=== PATIENT | male | born 1995 | race Two or more races ===

== ENCOUNTER 2018-02-11 17:59 | Emergency (ER) | payer MEDICAID ==
[~2018-02-11] VITALS: Ht 172.7 cm; Wt 94.0 kg
[2018-02-11 18:24] LABS: BASOPHILS % (AUTO) 0.4 % (0-1); EOSINOPHILS # (AUTO) 0.1 X10'3 (0-0.9); EOSINOPHILS % (AUTO) 1.4 % (0-6); HEMOGLOBIN 16.5 g/dl (14.0-17.9); LYMPHOCYTES # (AUTO) 1.6 X10'3 (1.1-4.8); LYMPHOCYTES % (AUTO) 24.3 % (21-51); MEAN CORPUSCULAR HGB CONC 34.4 % (33.0-36.5); MEAN CORPUSCULAR VOLUME 90.1 FL (78-98); MEAN PLATELET VOLUME 7.9 FL (7.4-10.4); MONOCYTES # (AUTO) 0.6 X10'3 (0-0.9); MONOCYTES % (AUTO) 8.5 % (2-12); NEUTROPHILS # (AUTO) 4.4 X10'3 (1.8-7.7); NEUTROPHILS % (AUTO) 65.4 % (42-75); PLATELET COUNT 249 X10'3 (140-440); RED BLOOD COUNT 5.32 X10'6 (4.70-6.10); RED CELL DISTRIBUTION WIDTH 13.1 % (11.5-14.5); WHITE BLOOD COUNT 6.7 X10'3 (4.5-11.0)
[2018-02-11 18:33] LABS: PARTIAL THROMBOPLASTIN TIME 25 SECONDS (22-32); PROTHROMBIN TIME 10.2 SECONDS (9.0-12.0)
[2018-02-11 18:38] LABS: ALANINE AMINOTRANSFERASE 94 U/L (12-78); ALBUMIN 4.4 G/DL (3.4-5.0); ALBUMIN/GLOBULIN RATIO 1.2 (1.1-1.5); ALKALINE PHOSPHATASE 55 IU/L (46-116); ANION GAP 11 (8-16); ASPARTATE AMINO TRANSFERASE 49 U/L (10-37); BLOOD UREA NITROGEN 15 MG/DL (7-18); BUN/CREATININE RATIO 14.6 (5.4-32.0); CALCIUM 9.2 MG/DL (8.5-10.1); CHLORIDE 101 MMOL/L (99-107); CREATININE 1.03 MG/DL (0.60-1.10); GLUCOSE 110 MG/DL (70-104); POTASSIUM 3.7 MMOL/L (3.5-5.1); SODIUM 139 MMOL/L (135-145); TOTAL CARBON DIOXIDE 26.8 MMOL/L (24-32); TOTAL PROTEIN 8.2 G/DL (6.4-8.2); eGFR 89 ML/MIN
[2018-02-11 18:57] VITALS: BP 137/72
== END 2018-02-11 19:01 | disposition home or self-care (01) ==
LOC: ER 17:59
DX: R07.9 Chest pain, unspecified (principal); F12.90 Cannabis use, unspecified, uncomplicated; F15.90 Other stimulant use, unspecified, uncomplicated
CPT/HCPCS: 36415; 71045; 80053; 84484; 85025; 85610; 85730; 93005; 99285

== ENCOUNTER 2019-01-06 20:29 | Emergency (ER) | payer MEDICAID ==
[~2019-01-06] VITALS: Ht 172.7 cm; Wt 94.0 kg
[2019-01-06 21:31] VITALS: BP 133/87
== END 2019-01-06 21:37 | disposition home or self-care (01) ==
LOC: ER 20:29
DX: S60.012A Contusion of left thumb without damage to nail, initial encounter (principal); F12.90 Cannabis use, unspecified, uncomplicated; F15.90 Other stimulant use, unspecified, uncomplicated; X58.XXXA Exposure to other specified factors, initial encounter; Y93.89 Activity, other specified; Y92.89 Other specified places as the place of occurrence of the external cause; Y99.8 Other external cause status
CPT/HCPCS: 11740; 73140; 99283

== ENCOUNTER 2019-03-03 14:18 | Emergency (ER) | payer MEDICAID ==
[~2019-03-03] VITALS: Ht 172.7 cm; Wt 98.0 kg
[2019-03-03 14:27] VITALS: BP 125/72
[2019-03-03 15:51] LABS: BASOPHILS % (AUTO) 0.6 % (0-1); EOSINOPHILS # (AUTO) 0.1 X10'3 (0-0.9); EOSINOPHILS % (AUTO) 2.4 % (0-6); HEMATOCRIT 44.5 % (42.0-52.0); HEMOGLOBIN 15.5 g/dl (14.0-17.9); LYMPHOCYTES # (AUTO) 1.2 X10'3 (1.1-4.8); LYMPHOCYTES % (AUTO) 21.5 % (21-51); MEAN CORPUSCULAR HEMOGLOBIN 30.5 PG (27.0-31.0); MEAN CORPUSCULAR HGB CONC 34.7 g/dL (33.0-36.5); MEAN CORPUSCULAR VOLUME 87.7 FL (78-98); MEAN PLATELET VOLUME 8.2 FL (7.4-10.4); MONOCYTES # (AUTO) 0.4 X10'3 (0-0.9); MONOCYTES % (AUTO) 7.9 % (2-12); NEUTROPHILS # (AUTO) 3.7 X10'3 (1.8-7.7); NEUTROPHILS % (AUTO) 67.6 % (42-75); PLATELET COUNT 254 X10'3 (140-440); RED BLOOD COUNT 5.07 X10'6 (4.70-6.10); RED CELL DISTRIBUTION WIDTH 13.2 % (11.5-14.5); WHITE BLOOD COUNT 5.4 X10'3 (4.5-11.0)
[2019-03-03 15:58] LABS: CLARITY,URINE CLEAR (Clear); COLOR,URINE YELLOW (Yellow); GLUCOSE, URINE NEGATIVE (Neg); KETONES,URINE NEGATIVE (Neg); LEUKOCYTE ESTERASE ,URINE TRACE (Neg); NITRITES, URINE NEGATIVE (Neg); OCCULT BLOOD,URINE TRACE-LYSED (Neg); PH,URINE 7.5 (4.8-8.0); PROTEIN,URINE NEGATIVE (Neg); UROBILINOGEN,URINE 0.2 E.U/dL (0.2-1.0)
[2019-03-03 15:59] LABS: UA COLLECTION TYPE CLN CATCH MIDSTREAM
[2019-03-03 16:04] LABS: ALANINE AMINOTRANSFERASE 117 U/L (12-78); ALBUMIN 4.1 G/DL (3.4-5.0); ALKALINE PHOSPHATASE 47 IU/L (46-116); ANION GAP 8 (8-16); CHLORIDE 106 MMOL/L (99-107); CREATININE 0.85 MG/DL (0.60-1.10); POTASSIUM 4.2 MMOL/L (3.5-5.1); SODIUM 141 MMOL/L (135-145); TOTAL CARBON DIOXIDE 27.1 MMOL/L (24-32); eGFR > 90 ML/MIN
[2019-03-03 16:05] LABS: SQUAMOUS EPITHELIAL CELL,UR FEW /LPF (FEW); WBC,URINE 0-4 /HPF (0-4)
[2019-03-03 16:07] LABS: BACTERIA,URINE FEW /HPF (Neg)
[2019-03-03 16:08] LABS: RBC,URINE 50-100 /HPF (0-2)
[2019-03-03 16:09] LABS: ALBUMIN/GLOBULIN RATIO 1.2 (1.1-1.5); BILIRUBIN,TOTAL 0.9 MG/DL (0.1-1.0); BLOOD UREA NITROGEN 10 MG/DL (7-18); BUN/CREATININE RATIO 11.8 (5.4-32.0); CALCIUM 8.3 MG/DL (8.5-10.1); GLUCOSE 91 MG/DL (70-104); TOTAL PROTEIN 7.5 G/DL (6.4-8.2)
[2019-03-03 16:10] LABS: ASPARTATE AMINO TRANSFERASE 58 U/L (10-37)
== END 2019-03-03 17:16 | disposition home or self-care (01) ==
LOC: ER 14:19
DX: R31.9 Hematuria, unspecified (principal); R74.0 Nonspecific elevation of levels of transaminase and lactic acid dehydrogenase [LDH]; R10.9 Unspecified abdominal pain; F12.90 Cannabis use, unspecified, uncomplicated; F15.90 Other stimulant use, unspecified, uncomplicated; F10.99 Alcohol use, unspecified with unspecified alcohol-induced disorder; Y90.9 Presence of alcohol in blood, level not specified
CPT/HCPCS: 36415; 76775; 80053; 81001; 85025; 87088; 99284

== ENCOUNTER 2019-03-31 10:33 | Emergency (ER) | payer MEDICAID | END 2019-03-31 11:30 | disposition left against medical advice (07) | LOC: ER 10:33 | DX: R10.9 Unspecified abdominal pain (principal); Z53.21 Procedure and treatment not carried out due to patient leaving prior to being seen by health care provider ==

== ENCOUNTER 2019-05-29 13:27 | Emergency (ER) | payer MEDICAID ==
[~2019-05-29] VITALS: Ht 172.7 cm; Wt 95.5 kg
[2019-05-29 15:59] VITALS: BP 125/87
--- NOTE | 2019-05-29 16:01 | NUR ---
PT AMB WITH STEADY GAIT TO HALLWAY BED, "I JUST NEED A NOTE TO GO BACK TO WORK...I AM OK", PT DENIES CHEST PAIN/DISCOMFORT, NO SOB, NO DIZZINESS, PT WORKS [employer], ON BREAK PT HAS WITNESSED SYNCOPAL EPISODE "LASTED A FEW SECONDS AND I WAS ABLE TO GET ON GROUND", PT IS [employer] 15, RESP EVEN AND UNLABORED, WAITING TO BE EVALUATED
== END 2019-05-29 16:33 | disposition home or self-care (01) ==
LOC: ER 13:27
DX: R55 Syncope and collapse (principal); R07.89 Other chest pain; R42 Dizziness and giddiness; R40.1 Stupor; F12.90 Cannabis use, unspecified, uncomplicated; F15.90 Other stimulant use, unspecified, uncomplicated
CPT/HCPCS: 93005; 99283

== ENCOUNTER 2019-09-26 03:40 | Emergency (ER) | payer MEDICAID ==
[~2019-09-26] VITALS: Ht 172.7 cm; Wt 95.5 kg
[2019-09-26 04:06] VITALS: BP 137/90
== END 2019-09-26 04:07 | disposition home or self-care (01) ==
LOC: ER 03:41
DX: R25.3 Fasciculation (principal); R42 Dizziness and giddiness; R06.02 Shortness of breath; F17.200 Nicotine dependence, unspecified, uncomplicated; F15.90 Other stimulant use, unspecified, uncomplicated; F12.90 Cannabis use, unspecified, uncomplicated; Z72.89 Other problems related to lifestyle
CPT/HCPCS: 93005; 99283

== ENCOUNTER 2020-03-05 03:36 | Emergency (ER) | payer MEDICAID ==
[~2020-03-05] VITALS: Ht 172.7 cm; Wt 100.0 kg
[2020-03-05 03:41] VITALS: BP 138/98
--- NOTE | 2020-03-05 03:50 | NUR ---
pt states he tested positive for covid 19. Feelings of SOB prn. However, he is visiting with me and not SOB and saturation on RA is 98-99 % and his VS are all WNLs. He even believes he is having mini panic attacks.
== END 2020-03-05 04:44 | disposition home or self-care (01) ==
LOC: ER 03:36
DX: U07.1 COVID-19 (principal); F41.9 Anxiety disorder, unspecified; F12.90 Cannabis use, unspecified, uncomplicated; F15.90 Other stimulant use, unspecified, uncomplicated
CPT/HCPCS: 99281

== ENCOUNTER 2020-06-20 17:35 | Emergency (ER) | payer MEDICAID ==
[~2020-06-20] VITALS: Ht 172.7 cm; Wt 95.5 kg
[2020-06-20 18:10] VITALS: BP 137/98
== END 2020-06-20 18:35 | disposition home or self-care (01) ==
LOC: ER 17:36
DX: S06.0X0A Concussion without loss of consciousness, initial encounter (principal); R51.9 Headache, unspecified; F12.90 Cannabis use, unspecified, uncomplicated; F15.90 Other stimulant use, unspecified, uncomplicated; Z72.89 Other problems related to lifestyle; X58.XXXA Exposure to other specified factors, initial encounter; Y93.89 Activity, other specified; Y92.89 Other specified places as the place of occurrence of the external cause; Y99.8 Other external cause status
CPT/HCPCS: 99282

== ENCOUNTER 2020-07-12 11:22 | Emergency (ER) | payer MEDICAID ==
[~2020-07-12] VITALS: Ht 172.7 cm; Wt 110.0 kg
[2020-07-12 11:34] VITALS: BP 144/80
== END 2020-07-12 13:53 | disposition home or self-care (01) ==
LOC: ER 11:23
DX: R51.9 Headache, unspecified (principal); R42 Dizziness and giddiness; F15.90 Other stimulant use, unspecified, uncomplicated; Z72.89 Other problems related to lifestyle; F12.90 Cannabis use, unspecified, uncomplicated
CPT/HCPCS: 70450; 99284

== ENCOUNTER 2020-09-08 17:40 | Emergency (ER) | payer MEDICAID ==
[~2020-09-08] VITALS: Ht 172.7 cm; Wt 100.0 kg
[2020-09-08 17:43] VITALS: BP 154/100
[2020-09-08 18:15] LABS: BASOPHILS % (AUTO) 0.5 % (0-1); EOSINOPHILS # (AUTO) 0.1 X10'3 (0-0.9); EOSINOPHILS % (AUTO) 2.2 % (0-6); HEMATOCRIT 48.5 % (42.0-52.0); HEMOGLOBIN 16.6 g/dl (14.0-17.9); LYMPHOCYTES # (AUTO) 1.6 X10'3 (1.1-4.8); LYMPHOCYTES % (AUTO) 23.6 % (21-51); MEAN CORPUSCULAR HGB CONC 34.1 g/dL (33.0-36.5); MEAN CORPUSCULAR VOLUME 87.9 FL (78-98); MEAN PLATELET VOLUME 8.5 FL (7.4-10.4); MONOCYTES # (AUTO) 0.6 X10'3 (0-0.9); MONOCYTES % (AUTO) 8.7 % (2-12); NEUTROPHILS # (AUTO) 4.3 X10'3 (1.8-7.7); PLATELET COUNT 291 X10'3 (140-440); RED BLOOD COUNT 5.52 X10'6 (4.70-6.10); RED CELL DISTRIBUTION WIDTH 13.1 % (11.5-14.5); WHITE BLOOD COUNT 6.6 X10'3 (4.5-11.0)
[2020-09-08 18:30] LABS: ALANINE AMINOTRANSFERASE 242 U/L (12-78); ALBUMIN 4.8 G/DL (3.4-5.0); ALBUMIN/GLOBULIN RATIO 1.2 (1.1-1.5); ALKALINE PHOSPHATASE 52 IU/L (46-116); ANION GAP 9 (8-16); ASPARTATE AMINO TRANSFERASE 100 U/L (10-37); BILIRUBIN,TOTAL 1.3 MG/DL (0.1-1.0); BLOOD UREA NITROGEN 16 MG/DL (7-18); BUN/CREATININE RATIO 16.7 (5.4-32.0); CALCIUM 9.3 MG/DL (8.5-10.1); CHLORIDE 103 MMOL/L (99-107); CREATININE 0.96 MG/DL (0.60-1.10); POTASSIUM 3.8 MMOL/L (3.5-5.1); SODIUM 139 MMOL/L (135-145); TOTAL CARBON DIOXIDE 27.1 MMOL/L (24-32); TOTAL PROTEIN 8.7 G/DL (6.4-8.2); eGFR > 90 ML/MIN
[2020-09-08 18:35] LABS: GLUCOSE 115 MG/DL (70-104)
[2020-09-08 18:47] LABS: COLOR,URINE YELLOW (Yellow); GLUCOSE, URINE NEGATIVE (Neg); KETONES,URINE NEGATIVE (Neg); LEUKOCYTE ESTERASE ,URINE TRACE (Neg); NITRITES, URINE NEGATIVE (Neg); OCCULT BLOOD,URINE SMALL (Neg); PH,URINE 6.5 (4.8-8.0); PROTEIN,URINE NEGATIVE (Neg); UROBILINOGEN,URINE 0.2 E.U/dL (0.2-1.0)
[2020-09-08 18:56] LABS: CLARITY,URINE SLIGHTLY CLOUDY (Clear); UA COLLECTION TYPE URINAL
[2020-09-08 18:58] LABS: BACTERIA,URINE FEW /HPF (Neg); RBC,URINE 0-2 /HPF (0-2); SQUAMOUS EPITHELIAL CELL,UR FEW /LPF (FEW)
== END 2020-09-08 19:28 | disposition home or self-care (01) ==
LOC: ER 17:40
DX: R74.01 Elevation of levels of liver transaminase levels (principal); R16.0 Hepatomegaly, not elsewhere classified; F12.90 Cannabis use, unspecified, uncomplicated; F15.90 Other stimulant use, unspecified, uncomplicated; Z72.89 Other problems related to lifestyle
CPT/HCPCS: 36415; 76700; 80053; 81001; 85025; 87088; 99284

== ENCOUNTER 2020-10-18 18:35 | Emergency (ER) | payer MEDICAID ==
[~2020-10-18] VITALS: Ht 172.7 cm; Wt 100.0 kg
[2020-10-18 19:38] LABS: BASOPHILS % (AUTO) 0.6 % (0-1); EOSINOPHILS # (AUTO) 0.4 X10'3 (0-0.9); EOSINOPHILS % (AUTO) 5.1 % (0-6); HEMATOCRIT 43.9 % (42.0-52.0); HEMOGLOBIN 15.4 g/dl (14.0-17.9); LYMPHOCYTES # (AUTO) 1.6 X10'3 (1.1-4.8); LYMPHOCYTES % (AUTO) 19.7 % (21-51); MEAN CORPUSCULAR VOLUME 88.5 FL (78-98); MEAN PLATELET VOLUME 8.2 FL (7.4-10.4); MONOCYTES # (AUTO) 0.7 X10'3 (0-0.9); MONOCYTES % (AUTO) 8.7 % (2-12); NEUTROPHILS # (AUTO) 5.3 X10'3 (1.8-7.7); NEUTROPHILS % (AUTO) 65.9 % (42-75); PLATELET COUNT 283 X10'3 (140-440); RED BLOOD COUNT 4.96 X10'6 (4.70-6.10); RED CELL DISTRIBUTION WIDTH 13.3 % (11.5-14.5); WHITE BLOOD COUNT 8.1 X10'3 (4.5-11.0)
[2020-10-18 19:51] LABS: ALANINE AMINOTRANSFERASE 259 U/L (12-78); ALBUMIN 4.3 G/DL (3.4-5.0); ALBUMIN/GLOBULIN RATIO 1.1 (1.1-1.5); ALKALINE PHOSPHATASE 60 IU/L (46-116); ANION GAP 11 (8-16); ASPARTATE AMINO TRANSFERASE 113 U/L (10-37); BILIRUBIN,TOTAL 0.9 MG/DL (0.1-1.0); BLOOD UREA NITROGEN 15 MG/DL (7-18); CHLORIDE 101 MMOL/L (99-107); POTASSIUM 4.2 MMOL/L (3.5-5.1); SODIUM 139 MMOL/L (135-145); TOTAL CARBON DIOXIDE 27.2 MMOL/L (24-32); TOTAL PROTEIN 8.1 G/DL (6.4-8.2); eGFR 90 ML/MIN
[2020-10-18 19:59] LABS: GLUCOSE 99 MG/DL (70-104)
[2020-10-18 22:49] VITALS: BP 142/84
== END 2020-10-18 22:56 | disposition home or self-care (01) ==
LOC: ER 18:35
DX: M94.0 Chondrocostal junction syndrome [Tietze] (principal); F12.90 Cannabis use, unspecified, uncomplicated; F15.90 Other stimulant use, unspecified, uncomplicated
CPT/HCPCS: 36415; 71045; 80053; 84484; 85025; 93005; 99285

== ENCOUNTER 2021-09-29 13:57 | Outpatient (CLI) | payer MEDICAID | END 2021-09-29 23:59 | disposition home or self-care (01) | LOC: RT 13:57 | PROVIDERS: ATTEND Family Medicine | DX: R06.02 Shortness of breath (principal); F12.90 Cannabis use, unspecified, uncomplicated; Z79.899 Other long term (current) drug therapy | CPT/HCPCS: 94010 ==

== ENCOUNTER 2022-11-16 21:29 | Emergency (ER) | payer MEDICAID ==
[~2022-11-16] VITALS: Ht 172.7 cm; Wt 109.1 kg
[2022-11-16 21:31] VITALS: BP 125/83
[2022-11-16] MEDS ORDERED: bacitracin 15gm ointment TP ONE (21:50)
== END 2022-11-16 22:05 ==
LOC: ER 21:29
DX: S30.810A Abrasion of lower back and pelvis, initial encounter (principal); Y93.89 Activity, other specified; X58.XXXA Exposure to other specified factors, initial encounter; Y92.89 Other specified places as the place of occurrence of the external cause; Y99.8 Other external cause status
CPT/HCPCS: 99283

== ENCOUNTER 2023-02-15 00:26 | Emergency (ER) | payer MEDICAID ==
--- NOTE | 2023-02-15 00:37 | NUR ---
[employer] states that the patient refused lab/put his jacket on and walked out. Not sure if he'll return.
== END 2023-02-15 01:29 | disposition left against medical advice (07) ==
LOC: ER 00:27
DX: R07.89 Other chest pain (principal); R20.0 Anesthesia of skin; Z53.21 Procedure and treatment not carried out due to patient leaving prior to being seen by health care provider

== ENCOUNTER 2024-02-26 11:18 | Emergency (ER) | payer MEDICAID ==
[~2024-02-26] VITALS: Ht 172.7 cm; Wt 104.5 kg
[2024-02-26] MEDS: ketorolac trometh 30MG/ML vial 30 MG/ML VIAL IM ONE (11:54)
[2024-02-26] MEDS: dexamethasone sod phosphate 10mg/ml inj IM STA (11:54)
[2024-02-26] MEDS ORDERED: PRED20TA PO (11:57)
[2024-02-26 12:00] VITALS: BP 134/86; PULSE 88; RESP 16; TEMP 98.2; O2SAT 98
== END 2024-02-26 12:02 | disposition home or self-care (01) ==
LOC: ER 11:18
DX: M79.18 Myalgia, other site (principal); F15.90 Other stimulant use, unspecified, uncomplicated; F12.90 Cannabis use, unspecified, uncomplicated
CPT/HCPCS: 96372; 99284; J1100; J1885

== ENCOUNTER 2024-06-11 14:28 | Emergency (ER) | payer MEDICAID ==
[~2024-06-11] VITALS: Ht 172.7 cm; Wt 104.5 kg
[2024-06-11] MEDS: dexamethasone sod phosphate 10mg/ml inj IM STA (17:09)
[2024-06-11] MEDS ORDERED: PRED10TA23 PO (17:15)
[2024-06-11 17:33] VITALS: BP 147/88; PULSE 102; RESP 16; O2SAT 95
== END 2024-06-11 17:32 | disposition home or self-care (01) ==
LOC: ER 14:29
DX: M25.59 Pain in other specified joint (principal); M25.542 Pain in joints of left hand; M25.541 Pain in joints of right hand; M25.512 Pain in left shoulder; M25.511 Pain in right shoulder; M79.604 Pain in right leg; M79.605 Pain in left leg
CPT/HCPCS: 96372; 99283; J1100

== ENCOUNTER 2024-07-20 19:14 | Emergency (ER) | payer MEDICAID ==
[~2024-07-20] VITALS: Ht 172.7 cm; Wt 104.5 kg
[2024-07-20 19:32] VITALS: BP 140/89; PULSE 120; RESP 16; TEMP 99.4; O2SAT 99
[2024-07-20 20:03] LABS: BASOPHILS % (AUTO) 0.2 % (0-1); EOSINOPHILS % (AUTO) 0.6 % (0-6); HEMATOCRIT 40.8 % (42.0-52.0); LYMPHOCYTES % (AUTO) 11.9 % (21-51); MEAN CORPUSCULAR HEMOGLOBIN 28.5 PG (27.0-31.0); MEAN CORPUSCULAR HGB CONC 34.2 g/dL (33.0-36.5); MEAN CORPUSCULAR VOLUME 83.4 FL (78-98); MEAN PLATELET VOLUME 6.5 FL (7.4-10.4); MONOCYTES # (AUTO) 0.5 X10'3 (0-0.9); MONOCYTES % (AUTO) 6.6 % (2-12); NEUTROPHILS # (AUTO) 6.7 X10'3 (1.8-7.7); NEUTROPHILS % (AUTO) 80.7 % (42-75); PLATELET COUNT 492 X10'3 (140-440); RED CELL DISTRIBUTION WIDTH 13.7 % (11.5-14.5); WHITE BLOOD COUNT 8.2 X10'3 (4.5-11.0)
[2024-07-20 20:17] LABS: ALANINE AMINOTRANSFERASE 43 U/L (12-78); ALBUMIN 3.5 G/DL (3.4-5.0); ALBUMIN/GLOBULIN RATIO 0.6 (1.1-1.5); ALKALINE PHOSPHATASE 67 IU/L (46-116); ANION GAP 8 (8-16); ASPARTATE AMINO TRANSFERASE 25 U/L (10-37); BILIRUBIN,TOTAL 0.8 MG/DL (0.1-1.0); BLOOD UREA NITROGEN 11 MG/DL (7-18); BUN/CREATININE RATIO 14.5 (10.0-20.0); CALCIUM 9.3 MG/DL (8.5-10.1); CHLORIDE 96 MMOL/L (99-107); CREATININE 0.76 MG/DL (0.60-1.10); LIPASE 29 U/L (16-77); POTASSIUM 4.3 MMOL/L (3.5-5.1); SODIUM 132 MMOL/L (135-145); TOTAL CARBON DIOXIDE 27.6 MMOL/L (24-32); eCRCL 138 ML/MIN; eGFR > 90 ML/MIN
[2024-07-20 20:20] LABS: GLUCOSE 105 MG/DL (70-104)
[2024-07-20 20:22] LABS: BILIRUBIN,URINE NEGATIVE (Neg); CLARITY,URINE CLEAR (Clear); COLOR,URINE YELLOW (Yellow); GLUCOSE, URINE NEGATIVE (Neg); KETONES,URINE NEGATIVE (Neg); LEUKOCYTE ESTERASE ,URINE NEGATIVE (Neg); NITRITES, URINE NEGATIVE (Neg); OCCULT BLOOD,URINE MODERATE (Neg); PROTEIN,URINE NEGATIVE (Neg); UROBILINOGEN,URINE 0.2 E.U/dL (0.2-1.0)
[2024-07-20 20:34] LABS: UA COLLECTION TYPE CLN CATCH MIDSTREAM
[2024-07-20 20:35] LABS: BACTERIA,URINE FEW /HPF (Neg); SQUAMOUS EPITHELIAL CELL,UR FEW /LPF (FEW)
[2024-07-20 20:36] LABS: WBC,URINE NONE SEEN /HPF (0-4)
== END 2024-07-20 22:55 | disposition left against medical advice (07) ==
LOC: ER 19:15
DX: M25.50 Pain in unspecified joint (principal); Z53.21 Procedure and treatment not carried out due to patient leaving prior to being seen by health care provider
CPT/HCPCS: 36415; 80053; 81001; 82948; 83690; 85025